=== PATIENT | male | born 1985 | race African-American/Black ===

== ENCOUNTER 2017-12-13 02:38 | Emergency (ER) | payer OTHER ==
[2017-12-13] MEDS: DIPHTH,PERTUSS(ACELL),TET TOX 0.5 ML DISP.SYRIN. VAX IM (03:30)
[2017-12-13] MEDS: HYDROcodone/APAP 5/325MG 1 TAB TABLET PO (03:34)
[2017-12-13] MEDS ORDERED: NITROGLYCERIN OINT 1 GM PACKET. (03:45)
== END 2017-12-13 04:15 | disposition home or self-care (01) ==
LOC: ER 02:38
DX: S60.410A Abrasion of right index finger, initial encounter (principal); S60.221A Contusion of right hand, initial encounter; J45.909 Unspecified asthma, uncomplicated; W23.0XXA Caught, crushed, jammed, or pinched between moving objects, initial encounter; Y93.89 Activity, other specified; Y92.89 Other specified places as the place of occurrence of the external cause; Y99.8 Other external cause status
CPT/HCPCS: 29130; 73130; 90471; 90715; 99284-25